=== PATIENT | female | born 1985 | race Hispanic/Latino ===

== ENCOUNTER 2024-04-19 18:32 | Emergency (ER) | payer MEDICAID ==
[~2024-04-19] VITALS: Ht 165.1 cm; Wt 70.8 kg
--- NOTE | 2024-04-19 19:25 | ERN ---
ED Note History of Present Illness Stated Complaint: VAGINAL BLEEDING IN Chief Complaint: Vaginal Bleeding Time Seen by MD: 19:20 Dictation: This is a delightful 38-year-old female who thought she was 10 weeks began experiencing some vaginal spotting. She saw her plane tender as outpatient and after evaluation he raised a concern that there was no heart rate. Given the she came to the ER for a 2nd opinion to confirm truly if she had demise. No massive vaginal bleeding, no nausea vomitings. She is a 6 para 5, 1 and her youngest child is 14 years old Temperature 99.5 pulse 69 respirations 14 blood pressure 139 /119 Allergies: Coded Allergies: No Known Drug Allergies (Unverified Allergy, Unknown, 04/19/24) Past Medical History Past Medical History: No Pertinent History Surgical History: None Family History: Negative Social History: Negative : 6 Para: 5 Aborts: 1 RN Note Reviewed/Agreed w/PFSH: Yes Review of System Dictation As described in the history of present illness Constitutional: Negative for fever,chills, and weight loss Eyes: Negative for injury, pain,redness, and discharge ENT: Negative for injury,pain or swelling Cardiovascular: Negative for chest pain, palpitations, and edema Respiratory: Negative for shortness of breath, cough, and wheezing, Abdomen/GI: Negative for abdominal pain, nausea, vomiting, diarrhea, and constipation Back: Negative for injury and pain : Negative for injury, bleeding and discharge MS/Extremity: Negative for injury and deformity Skin: Negative for rash, and discoloration Neuro: Negative for headache, weakness, numbness, tingling, and seizure Psych: Negative for suicide ideation, homicidal ideation, and hallucinations Initial Vital Sign VS Vital Signs Date Time Temp Pulse Resp B/P (MAP) Pulse Ox O2 Delivery O2 Flow Rate FiO2 04/19/24 18:34 99.5 69 14 139/119 99 Room Air 0 04/19/24 20:15 21 Physical Exam Dictation General: awake, alert, NAD Head/Face: Normocephalic, atraumatic Eyes: PERRL, EOMI, vision at baseline ENT: oral cavity clear, TMs clear, no signs of infection Neck: Trachea midline, supple, no nuchal rigidity Cardiovascular: RRR, normal S1/S2, No MRGs, no JVD Respiratory: CTAB, no respiratory distress, No rales or wheezes Abdomen: Soft, non-tender, non-distended, normal bowel sounds, no guarding or rebound. Skin: Warm, dry, normal turgor, no rash MS/Extremity: Pulses equal, no cyanosis, neurovascular intact, FROM Neuro: COAx4, GCS 15, strength 5/5, CN 2-12 intact, normal cerebellar exam, normal gait, Psych: Normal behavior, mood, and affect normal Extremities-trace edema without any palpable cords, Homans sign is negative Results (Laboratory/Radiology) Laboratory/Radiology Laboratory Tests Test 04/19/24 19:25 04/19/24 19:59 Urine Color LIGHT-YELLOW (YELLOW) Urine Appearance CLEAR (CLEAR) Urine pH 6.0 (5.0-8.0) Urine Specific [place]haw 1.012 (1.001-1.031) Urine Protein NEGATIVE mg/dL (NEGATIVE) Urine Glucose (UA) NEGATIVE mg/dL (NEGATIVE) Urine Ketones NEGATIVE mg/dL (NEGATIVE) Urine Occult Blood SMALL (NEGATIVE) H Urine Nitrate NEGATIVE (NEGATIVE) Urine Bilirubin NEGATIVE mg/dL (NEGATIVE) Urine Urobilinogen 0.2 mg/dL (0.2-1.0) Urine Leukocyte Esterase 25 Ruben/uL (NEGATIVE) H Urine RBC 0-1 /HPF (0-1) Urine WBC 0-1 /HPF (0-1) Urine Squamous Epithelial Cells RARE /HPF (0-2) Urine Bacteria RARE /HPF (None Seen) White Blood Count 7.2 K/uL (4.8-10.8) Red Blood Count 4.53 MIL/uL (4.00-5.50) Hemoglobin 13.1 g/dL (12.0-16.0) Hematocrit 39.6 % (36-48) Mean Corpuscular Volume 87.4 fL (79-99) Mean Corpuscular Hemoglobin 28.9 pg (27.0-33.0) Mean Corpuscular Hemoglobin Concent 33.1 g/dL (32.0-36.0) Red Cell Distribution Width 13.3 % (11.0-15.5) Platelet Count 131 K/uL (130-400) Mean Platelet Volume 13.2 fL (7.5-10.5) H Immature Granulocyte % (Auto) 0.1 % (0-1) Neutrophils (%) (Auto) 68.0 % (40.0-77.0) Lymphocytes (%) (Auto) 22.7 % (21.0-51.0) Monocytes (%) (Auto) 6.8 % (3.0-13.0) Eosinophils (%) (Auto) 1.7 % (0.0-8.0) Basophils (%) (Auto) 0.7 % (0.0-5.0) Neutrophils # (Auto) 4.9 K/uL (1.8-7.7) Lymphocytes # (Auto) 1.6 K/uL (1.0-4.8) Monocytes # (Auto) 0.5 K/uL (0.1-1.0) Eosinophils # (Auto) 0.12 K/uL (0.00-0.70) Basophils # (Auto) 0.05 K/uL (0.00-0.20) Absolute Immature Granulocyte (auto 0.01 K/uL (0-1) Nucleated Red Blood Cells 0.0 % (0.0-0.19) Sodium Level 139 mmol/L (136-145) Potassium Level 3.8 mmol/L (3.5-5.1) Chloride Level 104 mmol/L (101-111) Carbon Dioxide Level 28 mmol/L (21-32) Blood Urea Nitrogen 8 mg/dL (7-18) Creatinine 0.6 mg/dL (0.5-1.0) Glomerular Filtration Rate Calc 119 mL/min (>90) Random Glucose 78 mg/dL (70-105) Total Calcium 9.2 mg/dL (8.5-10.1) Human Chorionic Gonadotropin, Quant 8321 mIU/mL (0-5) H Serum Test, Qualitative POSITIVE (NEGATIVE) H Labs Reviewed?: Yes Ultrasound Comment: PATIENT: NEYMAR MR#: [id number] : 1985 SEX: F AGE: 38 LOCATION: [facility] ORDER 23 STATUS: REG REPORT#: [id number] SERVICE 21 REASON: VAGINAL BLEEDING ORDERING PHYSICIAN: GAYE LANCASTER MD PROCEDURE: OB <14 - US OB <14 WEEKS US OB <14 WEEKS HISTORY: Vaginal bleeding COMPARISON: None TECHNIQUE: Obstetrical ultrasound study was performed. FINDINGS: The uterus measures 11.3 x 7.7 x 7.7 centimeter. Right ovary measures 2.7 x 1.2 x 3 centimeter. Left ovary measures 3.1 x 1.4 x 3.1 centimeter. There is single intrauterine gestation with estimated gestational age of 8 weeks and 1 day heart activity is absent may be related to demise, clinical correlation is recommended. Beta-hCG correlation is recommended. No fluid is seen in the cul-de-sac. Follow-up examination is recommended. IMPRESSION: 1. There is single intrauterine gestation with estimated gestational age of 8 weeks and 1 day heart activity is absent may be related to demise, clinical correlation is recommended. Beta-hCG correlation is recommended. DICTATED BY: ANIBAL THAKUR MD DATE: 04/19/241957 ELECTRONICALLY SIGNED BY: ANIBAL THAKUR MD DATE: 04/19/242002 ED Course ED Course Orders Procedure Category Date Status Time Cbc With Differential LAB 04/19/24 Complete 19:22 Testing, LAB 04/19/24 Complete Serum Hcg 19:22 Us Ob <14 Weeks US 04/19/24 Resulted 19:22 0.9%Nacl 1000ml (Ns PHA 04/19/24 Complete 1000ml) 19:30 Basic Metabolic Panel LAB 04/19/24 Complete 19:22 Urinalysis Profile LAB 04/19/24 Complete 19:22 Hcg,Quantitative LAB 04/19/24 Complete 20:32 Current Medications Medications (Trade) Dose Ordered Sig/Charlee Route PRN Reason Start Time Stop Time Status Last Admin Dose Admin Sodium Chloride 1,000 ml @ 0 mls/hr ONCE ONCE IV 04/19/24 19:30 04/19/24 19:31 DC 04/19/24 20:27 Vital Signs Date Time Temp Pulse Resp B/P (MAP) Pulse Ox O2 Delivery O2 Flow Rate FiO2 04/19/24 20:15 98.1 68 16 115/71 100 Room Air* 0 21 04/19/24 18:34 99.5 69 14 139/119 99 Room Air 0 We will perform diagnostic labs, advanced imaging and administer medications according to the patient's complaint. Once the results are available, will review and personally interpreted the labs to rule out any acute life- threatening emergency the trach require immediate intervention and treatment. I will then re-evaluate the patient after treatment and diagnostic exams have return to determine whether the patient requires any further testing, can safely be discharged home or need further admission to hospital for additional treatment and evaluation. Reviewed labs CBC, BNP 7 with a normal limits. Serum test is positive. Ultrasound OB less than 10 weeks reviewed. There is a gestational sac approximately 8 weeks 1 day but no evidence of any heart rate. No placenta previa or other placental abnormalities or so placental bleeding. Cervix is closed. Serum HCG levels are pending. Urinalysis shows positive leuko esterase but no evidence of any WBC. I had a long discussion with the patient about the ultrasound findings, likely this being a missed and she verbalized full understanding. I presented various options including a. Allow nature to take its course and perhaps expect some abdominal cramping and vaginal bleeding as the is complete b. Offered combination therapy Mifeprestine and misoprostol to his in the expulsion of products of conception and sac Patient stated that she is extremely healthy and would like for it to take a natural course and does not wish to take any medications to expedite the missed . She has a follow-up appointment with her plane tender in 2 weeks I explained to her that should she develop any high fever, worsening cramping she should immediately alert her plane tender and/or return to ER immediately She verbalized full understanding of the instructions Medical Decision Making MDM MDM: Differential diagnosis:-dehydration, early , implantation bleeding, threat of Rationale: Tests considered and ordered secondary to shared decision making include: Previous outside records reviewed: Old ER visits. Risk of complication and/or morbidity or mortality of patient management: None Medications-Per medication reconciliation Need for hospitalization: Patient does not meet criteria for hospitalization. Need for emergency major/minor surgery: No There are no social concerns with this patient. Prescription drug management Prescriptions will include symptomatic care Patient's prior external medical records from other ER visits were reviewed by me as indicated. Prior testing and results from previous visits were reviewed. Prior tests were taken into account with medical decision making and resource utilization, independent historian/historians were used to obtain complete medical history. I independently interpreted the test that were performed, results were reviewed by me and considered findings on radiology if ordered. Medical management and examination interpretation discussions were had by me with other qualified healthcare professionals as indicated for the patient's care. Problem List Problem List: (1) Vaginal bleeding affecting early DX & DISP Disposition: Discharge Departure Impression: Primary Impression: Vaginal bleeding affecting early Additional Impression: Missed with demise before 20 completed weeks of gestation Condition: Stable Additional Instructions: Patient and the caregiver have been informed of all the diagnostic tests and the imaging conducted during the today's visit to the emergency room and has verbalized understanding of the results I have personally reviewed and interpreted all diagnostic exams performed here in the ER today as well as the vital signs documented by the nursing staff. The patient is now being discharged to home and should follow up with the primary care physician or the specialist as directed by the ER staff. Follow-up with primary care provider in 1 to 2 days. Take medications as directed here in the emergency room. Okay to continue home medications unless otherwise discussed during your visit in the emergency room today. Return to your nearest emergency room if symptoms worsen or if there is no improvement. Call 911 if you need immediate assistance. Take Tylenol or Motrin [id number] as needed and if no contraindications are present. Increase oral hydration. A wound culture or urine culture was ordered here in the emergency room department please follow-up with primary care provider and advise them to get repeat ports from our facility. If you had any Aren wrap/splints that were applied here, please do not remove them until you see your primary care or specialty. Patient will follow up with her plane tender in 1-2 weeks as per his instructions GAYE LANCASTER MD Apr 19, 2024 19:25
[2024-04-19 19:34] LABS: APPEARANCE,URINE CLEAR (CLEAR); BILIRUBIN,URINE NEGATIVE (NEGATIVE); COLOR,URINE LIGHT-YELLOW (YELLOW); GLUCOSE, URINE (UA) NEGATIVE (NEGATIVE); KETONES,URINE NEGATIVE (NEGATIVE); LEUKOCYTE ESTERASE ,URINE 25 Leu/uL (NEGATIVE); NITRATE,URINE NEGATIVE (NEGATIVE); OCCULT BLOOD,URINE SMALL (NEGATIVE); PROTEIN,URINE NEGATIVE (NEGATIVE); UROBILINOGEN,URINE 0.2 mg/dL (0.2-1.0)
[2024-04-19 19:40] LABS: ADD UA MICROSCOPIC YES
[2024-04-19 19:41] LABS: BACTERIA,URINE RARE /HPF (None Seen); MUCUS,URINE RARE LPF (None Seen); RBC,URINE 0-1 /HPF (0-1); SQUAMOUS EPITHELIAL CELL,UR RARE /HPF (0-2); WBC,URINE 0-1 /HPF (0-1)
--- NOTE | 2024-04-19 20:03 | HMCIMG ---
US OB <14 WEEKS HISTORY: Vaginal bleeding COMPARISON: None TECHNIQUE: Obstetrical ultrasound study was performed. FINDINGS: The uterus measures 11.3 x 7.7 x 7.7 centimeter. Right ovary measures 2.7 x 1.2 x 3 centimeter. Left ovary measures 3.1 x 1.4 x 3.1 centimeter. There is single intrauterine gestation with estimated gestational age of 8 weeks and 1 day heart activity is absent may be related to demise, clinical correlation is recommended. Beta-hCG correlation is recommended. No fluid is seen in the cul-de-sac. Follow-up examination is recommended. IMPRESSION: 1. There is single intrauterine gestation with estimated gestational age of 8 weeks and 1 day heart activity is absent may be related to demise, clinical correlation is recommended. Beta-hCG correlation is recommended.
[2024-04-19 20:09] LABS: BASOPHILS # (AUTO) 0.05 K/uL (0.00-0.20); BASOPHILS % (AUTO) 0.7 % (0.0-5.0); EOSINOPHILS # (AUTO) 0.12 K/uL (0.00-0.70); EOSINOPHILS % (AUTO) 1.7 % (0.0-8.0); HEMATOCRIT 39.6 % (36-48); IMMATURE GRANULOCYTE ABSOLUTE 0.01 K/uL (0-1); LYMPHOCYTES # (AUTO) 1.6 K/uL (1.0-4.8); LYMPHOCYTES % (AUTO) 22.7 % (21.0-51.0); MEAN CORPUSCULAR HEMOGLOBIN 28.9 pg (27.0-33.0); MEAN CORPUSCULAR HGB CONC 33.1 g/dL (32.0-36.0); MEAN CORPUSCULAR VOLUME 87.4 fL (79-99); MONOCYTES # (AUTO) 0.5 K/uL (0.1-1.0); MONOCYTES % (AUTO) 6.8 % (3.0-13.0); NEUTROPHILS # (AUTO) 4.9 K/uL (1.8-7.7); PLATELET COUNT (AUTO) 131 K/uL (130-400); RED BLOOD CELL COUNT(AUTO) 4.53 MIL/uL (4.00-5.50); RED CELL DISTRIBUTION WIDTH 13.3 % (11.0-15.5); WHITE BLOOD COUNT (AUTO) 7.2 K/uL (4.8-10.8)
[2024-04-19 20:15] VITALS: TEMP 98.1
[2024-04-19 20:20] LABS: CREATININE 0.6 mg/dL (0.5-1.0); POTASSIUM 3.8 mmol/L (3.5-5.1)
[2024-04-19] MEDS: 0.9%NACL 1000ML 1,000 ML IV ONE (20:27)
[2024-04-19 22:04] VITALS: BP 106/63; PULSE 62; RESP 16; O2SAT 100
== END 2024-04-19 22:10 | disposition home or self-care (01) ==
LOC: EDH 18:32
DX: O02.1 Missed abortion (principal); Z3A.10 10 weeks gestation of pregnancy
CPT/HCPCS: 99284; 96360; 76801; 80048; 84703; 84702; 85025; 81001; 36415; J7030; 96361